=== PATIENT | female | born 1955 | race Caucasian/White ===

== ENCOUNTER → 2017-05-24 | Outpatient (CLI) | payer BC ==
--- NOTE | 2017-05-25 07:36 | MAMMOGRAPHY REPORT ---
BILATERAL DIGITAL SCREENING MAMMOGRAM TOMOSYNTHESIS WITH CAD: 05/24/2017 CLINICAL HISTORY: Routine screening. Patient has no complaints. TECHNIQUE: Breast tomosynthesis in addition to standard 2D mammography was performed. Current study was also evaluated with a Computer Aided Detection (CAD) system. COMPARISON: Comparison is made to exam dated: 12/13/2008 mammogram. BREAST COMPOSITION: There are scattered areas of fibroglandular density in both breasts. There are benign mild involutional changes comparing to the prior 2008 mammogram. FINDINGS: No developing mass, architectural distortion or cluster of suspicious microcalcifications i s seen in either breast. IMPRESSION: ACR BI-RADS CATEGORY 2: BENIGN There is no mammographic evidence of malignancy. A 1 year screening mammogram is recommended. The pa tient will receive written notification of the results. Approximately 10% of breast cancers are not detected with mammography. A negative mammographic report should not delay biopsy if a clinically suggestive mass is present. Christina Iraheta M.D. ay/:05/24/2017 16:44:19 Flarer: Veronica Hollingsworth, [facility] letter sent: Normal 1/2 BI-RADS Code: ACR BI-RADS Category 2: Benign
== END | disposition home or self-care (01) ==
LOC: C.MAMM 13:05
PROVIDERS: ATTEND Nurse Practitioner Family
DX: Z12.31 Encounter for screening mammogram for malignant neoplasm of breast (principal)

== ENCOUNTER 2017-10-05 13:14 | Emergency (ER) | payer BC, OTHER ==
[~2017-10-05] VITALS: Ht 162.6 cm; Wt 60.0 kg
[2017-10-05 13:16] VITALS: TEMP 36.4; Ht 162.6 cm; Wt 60.0 kg
[2017-10-05] MEDS ORDERED: SODIUM CHLORIDE 0.9% 1000ML 1,000 ML IV STA (13:31)
[2017-10-05] MEDS ORDERED: AMOX500C3 PO (13:58)
--- NOTE | 2017-10-05 14:02 | DIAGNOSTIC IMAGING REPORT ---
CHEST ONE VIEW PORTABLE CLINICAL HISTORY: 61 years-old Female presenting with CHEST PAIN. TECHNIQUE: Portable upright AP view of the chest was obtained. COMPARISON: None. FINDINGS: Atherosclerosis of the aortic arch. Cardiac silhouette normal in size. Lungs and pleural spaces clear. Osseous structures normal. Upper abdomen normal. IMPRESSION: 1. No acute cardiopulmonary disease. Electronically signed by: Guillermo Flowers M.D. 10/05/2017 2:01 PM Dictated Date/Time: 10/05/2017 2:00 PM
[2017-10-05 14:29] LABS: BASO % 0.6 %; BASO ABS # 0.04 K/uL (0-0.2); EOS % 0.7 %; EOS ABS # 0.05 K/uL (0-0.5); HEMATOCRIT 40.9 % (37-47); HEMOGLOBIN 13.9 g/dL (12.0-16.0); IG# 0.02 K/uL (0.00-0.02); LYMPH % 22.9 %; LYMPH ABS # 1.61 K/uL (1.2-3.4); MEAN CELL VOLUME 88.9 fL (80-100); MEAN CORPUSCULAR HEMOGLOBIN 30.2 pg (25-34); MEAN PLATELET VOLUME 9.9 fL (7.4-10.4); MONO % 6.7 %; MONO ABS # 0.47 K/uL (0.11-0.59); NEUT % 68.8 %; NEUT ABS # 4.84 K/uL (1.4-6.5); PLATELET COUNT 265 K/uL (130-400); RED CELL DISTRIBUTION WIDTH CV 13.2 % (11.5-14.5); RED CELL DISTRIBUTION WIDTH SD 42.6 fL (36.4-46.3); WHITE BLOOD COUNT 7.03 K/uL (4.8-10.8)
[2017-10-05 14:51] LABS: ALBUMIN 3.9 gm/dl (3.4-5.0); ALT/SGPT 20 U/L (12-78); AST/SGOT 17 U/L (15-37); BLOOD UREA NITROGEN 13 mg/dl (7-18); CARBON DIOXIDE 25 mmol/L (21-32); GLUCOSE 131 mg/dl (70-99); LIPASE 160 U/L (73-393); POTASSIUM 3.7 mmol/L (3.5-5.1); SODIUM 136 mmol/L (136-145)
[2017-10-05 15:03] LABS: ALKALINE PHOSPHATASE 78 U/L (45-117); TOTAL PROTEIN 7.6 gm/dl (6.4-8.2)
[2017-10-05 15:47] VITALS: BP 134/72; PULSE 82; O2SAT 97
--- NOTE | 2017-10-05 15:50 | EMERGENCY ROOM VISIT NOTE ---
History Report prepared by Edenilson: Neri Howell Under the Supervision of: Dr. Tino Castillo M.D. First contact with patient: 13:19 Chief Complaint: DIZZY Stated Complaint: DIZZY, WEAK History of Present Illness The patient is a 61 year old female who presents to the Emergency Room with complaints of persistent generalized illness beginning a few weeks ago. Her symptoms include generalized weakness, dizziness, nausea, diarrhea, and episodes of shaking. She was seen in clinic yesterday for her symptoms. The patient denies any fevers, SOB, black or bloody stool, urinary symptoms, headache, or vomiting. She notes that her granddaughter and children were diagnosed with the flu a few weeks ago. She notes that she has some swelling in her right jaw, and is concerned she could have an infection. The patient was started on amoxicillin yesterday. She also adds that she has felt heart palpitations and occasional abdominal pain. She feels that she may have fibromyalgia, but has never been formally diagnosed. The patient adds that she has chronic neck pain for several years that has not been evaluated. Source of History: patient Onset: A few weeks ago Position: other (generalized) Quality: other (illness) Timing: other (persistent) Associated Symptoms: + nausea, + abdominal pain (occasional), + diarrhea, + weakness (generalized), No fevers, No headache, No chest pain, No SOB, No vomiting, No melena, No hematochezia, No urinary symptoms Note: Additional symptoms: heart palpitations, dizziness, and episodes of shaking. Review of Systems See HPI for pertinent positives & negatives. A total of 10 systems reviewed and were otherwise negative. Past Medical & Surgical Medical Problems: (1) No Known Active Medical Problems (2) Otitis media Surgical Problems: (1) H/O myringotomy Old medical records were reviewed. Nurse's notes were reviewed and I agree with. Family History No pertinent family history stated. Social History Drug Use: none Marital Status: Housing Status: lives with significant other Current/Historical Medications Scheduled Amoxicillin (Amoxil), 500 MG PO TID Allergies Coded Allergies: Iodine (Unverified Allergy, Severe, HIVES, 09/13/09) Physical Exam Vital Signs Date Time Temp Pulse Resp B/P (MAP) Pulse Ox O2 Delivery O2 Flow Rate FiO2 10/05/17 15:47 82 16 134/72 97 Room Air 10/05/17 14:16 90 16 151/81 97 Room Air 10/05/17 13:16 36.4 106 20 160/71 97 Physical Exam General: Non-ill appearing middle-aged female in no acute distress. HEENT: Normal cephalic atraumatic. Pupils are equal round and reactive to light. Extraocular movements are intact. Oropharynx is pink with moist mucous membranes. No swelling of the mouth lips or tongue. Neck: Supple with a midline trachea. No meningeal signs or stiffness, no JVD or bruits. No Stridor. Chest: Clear to auscultation bilaterally. No wheezes or rhonchi. No increased work of breathing. Heart: regular rate and rhythm. Abdomen: Soft nontender, nondistended without rebound guarding or rigidity. Extremities: No cyanosis clubbing or edema. No calf tenderness or assymetry Spine/Back. Non tender to palpation. No CVA tenderness Skin: Good turgor without rashes. Neurologic exam: Cranial nerves two through 12 are intact. Motor and sensation are intact and symmetrical throughout. Normal gait. Normal heel to toe gait. Normal finger to nose. Medical Decision & Procedures ER Provider Diagnostic Interpretation: Radiology results as stated below per my review and radiologist interpretation: CHEST ONE VIEW PORTABLE FINDINGS: Atherosclerosis of the aortic arch. Cardiac silhouette normal in size. Lungs and pleural spaces clear. Osseous structures normal. Upper abdomen normal. IMPRESSION: 1. No acute cardiopulmonary disease. Electronically signed by: Guillermo Flowers M.D. 10/05/2017 2:01 PM Laboratory Results 10/05/17 14:05 Red Blood Count 4.60, Mean Corpuscular Volume 88.9, Mean Corpuscular Hemoglobin 30.2, Mean Corpuscular Hemoglobin Concent 34.0, Mean Platelet Volume 9.9, Neutrophils (%) (Auto) 68.8, Lymphocytes (%) (Auto) 22.9, Monocytes (%) (Auto) 6.7, Eosinophils (%) (Auto) 0.7, Basophils (%) (Auto) 0.6, Neutrophils # (Auto) 4.84, Lymphocytes # (Auto) 1.61, Monocytes # (Auto) 0.47, Eosinophils # (Auto) 0.05, Basophils # (Auto) 0.04 10/05/17 14:05 Test 10/05/17 14:05 10/05/17 14:09 White Blood Count 7.03 K/uL (4.8-10.8) Red Blood Count 4.60 M/uL (4.2-5.4) Hemoglobin 13.9 g/dL (12.0-16.0) Hematocrit 40.9 % (37-47) Mean Corpuscular Volume 88.9 fL (80-100) Mean Corpuscular Hemoglobin 30.2 pg (25-34) Mean Corpuscular Hemoglobin Concent 34.0 g/dl (32-36) Platelet Count 265 K/uL (130-400) Mean Platelet Volume 9.9 fL (7.4-10.4) Neutrophils (%) (Auto) 68.8 % Lymphocytes (%) (Auto) 22.9 % Monocytes (%) (Auto) 6.7 % Eosinophils (%) (Auto) 0.7 % Basophils (%) (Auto) 0.6 % Neutrophils # (Auto) 4.84 K/uL (1.4-6.5) Lymphocytes # (Auto) 1.61 K/uL (1.2-3.4) Monocytes # (Auto) 0.47 K/uL (0.11-0.59) Eosinophils # (Auto) 0.05 K/uL (0-0.5) Basophils # (Auto) 0.04 K/uL (0-0.2) RDW Standard Deviation 42.6 fL (36.4-46.3) RDW Coefficient of Variation 13.2 % (11.5-14.5) Immature Granulocyte % (Auto) 0.3 % Immature Granulocyte # (Auto) 0.02 K/uL (0.00-0.02) Anion Gap 8.0 mmol/L (3-11) Est Creatinine Clear Calc Drug Dose 55.3 ml/min Estimated GFR () 78.9 Estimated GFR (Non- 68.0 BUN/Creatinine Ratio 14.1 (10-20) Calcium Level 9.0 mg/dl (8.5-10.1) Total Bilirubin 0.5 mg/dl (0.2-1) Direct Bilirubin < 0.1 mg/dl (0-0.2) Aspartate Amino Transf (AST/SGOT) 17 U/L (15-37) Alanine Aminotransferase (ALT/SGPT) 20 U/L (12-78) Alkaline Phosphatase 78 U/L (45-117) Total Protein 7.6 gm/dl (6.4-8.2) Albumin 3.9 gm/dl (3.4-5.0) Lipase 160 U/L (73-393) Thyroid Stimulating Hormone (TSH) 2.320 uIu/ml (0.300-4.500) Bedside Troponin I < 0.030 ng/ml (0-0.045) Laboratory studies as stated above per my review. Medications Administered Medications (Trade) Dose Ordered Sig/Luisa Route Start Time Stop Time Status Last Admin Dose Admin Sodium Chloride 1,000 ml @ 999 mls/hr Q1H1M STAT IV 10/05/17 13:31 10/05/17 14:31 DC 10/05/17 14:17 999 MLS/HR ECG Per My Interpretation Indication: weakness Rate (beats per minute): 89 Rhythm: normal sinus Findings: no acute ischemic change, no ectopy, other (Normal intervals. ) Comparison ECG Date: March 29, 2005 Change: no significant change ED Course 1322: Past medical records reviewed. The patient was evaluated in room B12B, and a complete history and physical examination were performed. 1331: Ordered Sodium Chloride 1000 ml @ 999 mls/hr IV. 1540: Upon reevaluation, the patient is resting comfortably. I discussed the results and treatment plan with her. She verbalized agreement of the treatment plan. The patient was discharged home. Medical Decision Differentials include, but are not limited to; viral illness, dehydration, cardiac disease, and electrolyte or metabolic abnormality. This patient comes in as described above. She was placed in room B12. She is here for treatment and evaluation of feeling weak and tired and dizzy for about the last month or so. She said she caught the flu and hasn't felt well since then. No chest pain. She looks well on exam and has stable vital signs. She says she's been eating and drinking normally. She has a normal neurologic exam and her abdomen is benign. IV access established EKG was obtained. EKG does not suggest acute coronary syndrome or arrhythmia. She has no significant electrolyte or metabolic abnormalities. She has nothing to suggest thyroid disease She has nothing to suggest infection. She has normal white count. She is not anemic. Her cardiac biomarkers are not elevated. Chest x-ray is unremarkable she felt better after receiving IV fluid,s. This may be more of a viral viral illness. At this point there is no evidence suggest cardiac disease or fracture infection. I recommended that she follow up with her regular doctor for close recheck. She should return if: worsening of symptoms, fever or chills, any new problems or concerns. Medication Reconcilliation Current Medication List: was personally reviewed by me Blood Pressure Screening Patient's blood pressure: Elevated blood pressure Blood pressure disposition: Referred to PCP Impression Primary Impression: Dizziness Scribe Attestation The scribe's documentation has been prepared under my direction and personally reviewed by me in its entirety. I confirm that the note above accurately reflects all work, treatment, procedures, and medical decision making performed by me. Departure Information Dispostion Home / Self-Care Referrals [facility] (PCP) Forms HOME CARE DOCUMENTATION FORM, IMPORTANT VISIT INFORMATION Patient Instructions My [facility] Additional Instructions Rest. Drink plenty of fluids. Return if: Worsening of symptoms, shortness of breath, chest pain, any new problems or concerns Follow-up with your doctor this week for recheck
== END 2017-10-05 15:58 | disposition home or self-care (01) ==
LOC: C.EDB 13:16
DX: R42 Dizziness and giddiness (principal); R03.0 Elevated blood-pressure reading, without diagnosis of hypertension; Z91.041 Radiographic dye allergy status